=== PATIENT | male | born 1945 | race Caucasian/White ===

== ENCOUNTER 2020-09-22 22:20 | Emergency (ER) | payer MEDICARE, MEDICAID, SELFPAY ==
--- NOTE | 2020-09-22 22:31 | XR_ITS ---
WS: [id number] Exam: XR chest 1V portable [id number] Date/Time of Exam: 09/22/2020 10:57 PM Reason For Exam: cp Comparison 05/30/2014. The lungs are hyperinflated and clear. Unremarkable cardiomediastinal silhouette. Regional bony eleme nts are intact. XR/XR chest 1V portable [id number] IMPRESSION: 1. Pulmonary hyperinflation which may indicate obstructive lung disease. No acu te process.
--- NOTE | 2020-09-22 22:31 | ECG_ITS ---
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 Measurements Intervals [place] Rate: 88 P: 74 ME: 153 QRS: 30 QRSD: 111 T: 77 QT: 368 QTc: 447 Interpretive Statements SINUS RHYTHM MODERATE INTRAVENTRICULAR CONDUCTION DELAY [110+ ms QRS DURATION] NONSPECIFIC T-WAVE ABNORMALITY Compared to ECG 05/30/2014 01:44:30 Intraventricular conduction delay now present T-wave abnormality now present Electronically Signed On 09-23-2020 17:29:52 CDT by Nalini Blackmon M.D. [id number]
[2020-09-22 22:33] VITALS: BP 103/68; PULSE 91; RESP 16; TEMP 36.2; O2SAT 94; BMI 27.3
--- NOTE | 2020-09-22 22:41 | W.ED.CHESTPA ---
HPI - Chest Pain General: Chief Complaint: Chest Pain Stated Complaint: CP Time Seen by Provider: 09/22/20 22:30 Source: patient and EMS Mode of arrival: EMS Limitations: no limitations History of Present Illness: HPI narrative: Patient is a 75-year-old male who states he is a heavy drinker and has had a pint of whiskey today. Patient had complained of chest pain to EMS but he denies having any chest pain to me. He states that he drank too much today. He is able answer all my questions has no medical complaints at this time. Denies any cough or shortness of breath. He is intoxicated. Associated symptoms: Deny abdominal pain, dyspnea, fever(s), nausea or vomiting Review of Systems Const: Denies: fever(s), chills, body aches or change in appetite Eyes: Denies: blurry vision or eye discomfort ENMT: Denies: throat pain or dental pain Card: Reports: chest pain Resp: Denies: dyspnea GI: Denies: abdominal pain, nausea, vomiting or diarrhea : Denies: dysuria Musc: Denies: neck pain or back pain Skin/Breast: Denies: rash Neuro: Denies: headache(s) Psych: Denies: depression Jose/Lymph: Denies: easy bruising All/Imm: Denies: urticaria Physical Exam Const: COMMON NORMALS: patient oriented x3 and healthy appearing OTHER: alcohol intoxication HENMT: COMMON NORMALS: normocephalic and atraumatic HEAD & SCALP: normocephalic and atraumatic Eye: COMMON NORMALS: Equal, round and reactive pupils present and EOMs intact bilaterally PUPIL: Yes Equal, round and reactive pupils present Neck/C-Spine: COMMON NORMALS: full ROM and supple Chest: COMMONS NORMALS: normal inspection of the chest and normal palpation of entire chest wall Resp: COMMON NORMALS: normal respiratory effort, No retractions, No use of accessory muscles and clear to auscultation bilaterally AUSCULTATION: clear to auscultation bilaterally Cardio: COMMON NORMALS: regular rate, regular rhythm and No murmurs present (Cardio) RATE: regular rate RHYTHM: regular rhythm GI: COMMON NORMALS: Normal to inspection, nondistended, normoactive bowel sounds present, Soft to palpation, non-tender and no masses PALPATION: Yes Soft to palpation Extremity: COMMON NORMALS: normal to inspection and full ROM Neuro: COMMON NORMALS: patient oriented x3, moves all extremities and no focal motor deficits Psych: COMMON NORMALS: mental status grossly normal, Normal thought process present and cooperative THOUGHT PROCESS: Normal thought process present Skin: COMMON NORMALS: no rashes or lesions noted and no wounds GENERAL SKIN EXAM: no rashes or lesions noted Course Vital Signs: Vital signs: Vital Signs Temperature 97.1 F L 09/22/20 22:33 Pulse Rate 79 09/23/20 00:33 Respiratory Rate 18 09/23/20 00:33 Blood Pressure 120/79 09/23/20 00:33 Pulse Oximetry 96 09/23/20 00:33 MDM - Chest Pain MDM Narrative: Medical decision making narrative: Patient presents here with chest pain that is atypical in nature. His troponins were negative. He does have a normal EKGs as well. He has no signs of acute coronary syndrome. Patient is quite intoxicated. He is ambulatory now able answer all my questions and his son is here want to take him home. He is stable for discharge. He is to follow-up with PCP and return if worsening. Lab Data: Labs: Lab Results 09/22/20 09/22/20 09/22/20 Range/Units 22:30 22:30 22:30 WBC 6.9 (4.0-10.0) 10^3/ uL RBC 4.46 (4.1-5.3) 10^6/u L Hgb 14.5 (11.7-16.6) g/dL Hct 42.8 (42.0-52.0) % MCV 96.0 H (80-94) fL MCH 32.5 (28.0-34.0) pg MCHC 33.9 (30.0-36.0) g/dL RDW 14.0 (12.1-15.1) % Plt Count 224 (130-400) 10^3/c mm MPV 9.2 (7.4-10.4) fL Neut % (Auto) 62.4 % Lymph % (Auto) 27.8 % Waldo % (Auto) 8.4 % Eos % (Auto) 0.4 % Baso % (Auto) 0.9 % Neut # (Auto) 4.30 (1.8-7.7) 10^3/u L Lymph # (Auto) 1.9 (0.8-4.8) 10^3/u L Waldo # (Auto) 0.6 (0.2-0.9) 10^3/u L Eos # (Auto) 0.0 (0.0-0.8) 10^3/u L Baso # (Auto) 0.1 (0.0-0.1) 10^3/u L Nucleated RBC % (a uto) 0 % Nucleated RBCs # 0.0 /100WBC PT 12.70 (12.1-14.9) SECO NDS INR 0.93 (0.8-1.2) Sodium 142 (136-145) mmol/L Potassium 3.1 L (3.5-5.1) mmol/L Chloride 102 (98-107) mmol/L Carbon Dioxide 25 (22-29) mmol/L Anion Gap 18.1 (5-19) BUN 10 (8-23) mg/dL Creatinine 0.6 L (0.7-1.2) mg/dL GFR Calculation Not Reportable Glucose 74 (65-115) mg/dL Calculated Osmolal ity 292 (285-295) mOsm/k g Calcium 8.7 (8.5-10.5) mg/dL Total Bilirubin 0.6 (0.15-1.2) mg/dL AST 66 H (0-40) U/L ALT 40 (0-41) U/L Alkaline Phosphata se 131 H (40-130) IU/L Troponin T Baselin e (0-15) ng/L Troponin T 120 Min markell (0-15) ng/L Delta Troponin T (0-10) ABS# Total Protein 7.0 (6.6-8.7) g/dL Albumin 3.8 (3.5-5.2) g/dL Globulin 3.2 (1.3-4.6) g/dL Lipase (13-60) U/L Ethyl Alcohol (0-10) mg/dL 09/22/20 09/22/20 09/23/20 Range/Units 22:30 22:30 00:30 WBC (4.0-10.0) 10^3/ uL RBC (4.1-5.3) 10^6/u L Hgb (11.7-16.6) g/dL Hct (42.0-52.0) % MCV (80-94) fL MCH (28.0-34.0) pg MCHC (30.0-36.0) g/dL RDW (12.1-15.1) % Plt Count (130-400) 10^3/c mm MPV (7.4-10.4) fL Neut % (Auto) % Lymph % (Auto) % Waldo % (Auto) % Eos % (Auto) % Baso % (Auto) % Neut # (Auto) (1.8-7.7) 10^3/u L Lymph # (Auto) (0.8-4.8) 10^3/u L Waldo # (Auto) (0.2-0.9) 10^3/u L Eos # (Auto) (0.0-0.8) 10^3/u L Baso # (Auto) (0.0-0.1) 10^3/u L Nucleated RBC % (a uto) % Nucleated RBCs # /100WBC PT (12.1-14.9) SECO NDS INR (0.8-1.2) Sodium (136-145) mmol/L Potassium (3.5-5.1) mmol/L Chloride (98-107) mmol/L Carbon Dioxide (22-29) mmol/L Anion Gap (5-19) BUN (8-23) mg/dL Creatinine (0.7-1.2) mg/dL GFR Calculation Glucose (65-115) mg/dL Calculated Osmolal ity (285-295) mOsm/k g Calcium (8.5-10.5) mg/dL Total Bilirubin (0.15-1.2) mg/dL AST (0-40) U/L ALT (0-41) U/L Alkaline Phosphata se (40-130) IU/L Troponin T Baselin e 17 H (0-15) ng/L Troponin T 120 Min markell 21.17 H (0-15) ng/L Delta Troponin T 4.17 (0-10) ABS# Total Protein (6.6-8.7) g/dL Albumin (3.5-5.2) g/dL Globulin (1.3-4.6) g/dL Lipase 40 (13-60) U/L Ethyl Alcohol 394 H* (0-10) mg/dL Imaging Data^: CXR: Attestation: I personally reviewed and interpreted this imaging study as follows: My impression: no acute abnormality EKG Data^: EKG 1: Attestation: I personally reviewed and interpreted this EKG as follows: EKG interpretation date: 09/22/20 EKG interpretation time: 22:40 Interpretation: nsr hr [address] or t wave abnormalities qrs 111 qtc 414 Discharge Plan Discharge Patient Disposition: Home Clinical Impression: Chest pain Qualifiers: Chest pain type: unspecified Qualified Code(s): R07.9 - Chest pain, unspecified Alcohol intoxication Qualifiers: Complication of substance-induced condition: uncomplicated Qualified Code(s): F10.920 - Alcohol use, unspecified with intoxication, uncomplicated Condition: Stable Discharge Orders: Discharge ED (Routine); Ordered 09/23/20 Ordered By: Bobby Montoya Discharge Diet: Advance as tolerated Discharge Activity: Resume usual activity Patient Instructions: Chest Pain (ED) Coding Level of Care Code ED Corporate Development Associate for Chg Fwd Exam Comprehensive
[2020-09-22 22:53] LABS: INR 0.93 (0.8-1.2)
[2020-09-22 22:57] LABS: Basophils # 0.1 10^3/uL (0.0-0.1); Basophils % 0.9 %; Eosinophils % 0.4 %; Hematocrit 42.8 % (42.0-52.0); Hemoglobin 14.5 g/dL (11.7-16.6); Lymphocytes # 1.9 10^3/uL (0.8-4.8); Lymphocytes % 27.8 %; Mean Corpuscular HGB Conc 33.9 g/dL (30.0-36.0); Mean Corpuscular Hemoglobin 32.5 pg (28.0-34.0); Mean Platelet Volume 9.2 fL (7.4-10.4); Monocytes # 0.6 10^3/uL (0.2-0.9); Monocytes % 8.4 %; Neutrophils % 62.4 %; Nucleated Red Blood Cells % 0 %; Platelet Count 224 10^3/cmm (130-400); Red Blood Count 4.46 10^6/uL (4.1-5.3); White Blood Count 6.9 10^3/uL (4.0-10.0)
[2020-09-22 22:58] LABS: Alanine Aminotransferase 40 U/L (0-41); Albumin Level 3.8 g/dL (3.5-5.2); Alkaline Phosphatase 131 IU/L (40-130); Anion Gap 18.1 (5-19); Aspartate Amino Transferase 66 U/L (0-40); Blood Urea Nitrogen 10 mg/dL (8-23); Calcium 8.7 mg/dL (8.5-10.5); Carbon Dioxide 25 mmol/L (22-29); Chloride 102 mmol/L (98-107); Globulin 3.2 g/dL (1.3-4.6); Glucose 74 mg/dL (65-115); Osmolality Calculated 292 mOsm/kg (285-295); Potassium 3.1 mmol/L (3.5-5.1); Sodium 142 mmol/L (136-145); Total Bilirubin 0.6 mg/dL (0.15-1.2)
[2020-09-22 23:00] LABS: Troponin(5th) Baseline 17 ng/L (0-15)
[2020-09-22] MEDS: multivitamin therapeutic Tablet 1 TAB PO (23:00)
[2020-09-22 23:13] LABS: Lipase 40 U/L (13-60)
[2020-09-22 23:21] LABS: Alcohol Level 394 mg/dL (0-10)
[2020-09-23 00:33] VITALS: BP 120/79; PULSE 79; RESP 18; O2SAT 96
[2020-09-23 00:51] LABS: Troponin 5 2HR 21.17 ng/L (0-15); Troponin 5 2HR Delta 4.17 ABS# (0-10)
[2020-09-23 01:15] VITALS: PULSE 88; RESP 18; O2SAT 96
== END 2020-09-23 01:15 | disposition home or self-care (01) ==
PROVIDERS: Emergency Provider Emergency Medicine
DX: R07.9 Chest pain, unspecified (principal); F10.920 Alcohol use, unspecified with intoxication, uncomplicated
CPT/HCPCS: 36415; 71045; 80053; 80307; 83690; 84484; 85025; 85610; 93005; 96374; 99283; J3411